=== PATIENT | female | born 1955 | race Caucasian/White ===

== ENCOUNTER → 2019-11-30 10:33 | Outpatient (CLI) | payer OTHER, SELFPAY ==
--- NOTE | ~2019-11-30 | XR_ITS ---
EXAMINATION: XR chest 2V EXAM DATE: 11/30/2019 11:10 INDICATION: Left-sided chest pain and right chest pain. Cough 1-2 weeks. Congestion. TECHNIQUE: Frontal and lateral projections of the chest obtained and reviewed. Comparison is made to prior examination from 08/26/2010. FINDINGS: Biapical scarring. There is severe chronic hyperinflation. No confluent consolidation, pne umothorax or pleural effusion suspected. Cardiomediastinal silhouette is normal. Cervical fusion hard claros. IMPRESSION: 1. Hyperinflation. 2. Biapical scarring. Reviewed, dictated and finalized at location B. T OPERATIONS CLERK
== END ==
PROVIDERS: PCP Internal Medicine; Visit Provider Internal Medicine
DX: R07.9 Chest pain, unspecified (principal); R91.8 Other nonspecific abnormal finding of lung field
CPT/HCPCS: 71046

== ENCOUNTER 2020-06-16 16:20 | Emergency (ER) | payer OTHER, SELFPAY ==
--- NOTE | ~2020-06-16 | XR_ITS ---
EXAMINATION: XR chest 2V EXAM DATE: 06/16/2020 17:37 INDICATION: Right-sided lateral chest pain. TECHNIQUE: Frontal and lateral projections of the chest obtained and reviewed. Comparison is made to prior examination from 11/30/2019. FINDINGS: There is severe chronic hyperinflation. There are bilateral upper lobe peripheral opacitie s unchanged, likely focal regions of scarring. The lungs are otherwise clear. There are no pleural e ffusions. The cardiomediastinal silhouette is within normal limits. There is no pneumothorax suspec valdez. Bones appear somewhat osteopenic. IMPRESSION: 1. Biapical scarring. 2. Hyperinflation. Reviewed, dictated and finalized at location A.
--- NOTE | 2020-06-16 16:33 | ECG_ITS ---
Measurements Intervals [place] Rate: 78 P: 83 W[place]: 146 QRS: 87 QRSD: 80 T: 73 QT: 379 QTc: 434 Interpretive Statements SINUS RHYTHM RIGHT ATRIAL ENLARGEMENT LEFT ATRIAL ENLARGEMENT BORDERLINE ST ABNORMALITY- INFERIOR LEADS BASELINE ARTIFACT- I, II, III, AVR, AVL, AVF, V1-V2, V6 BORDERLINE ECG Electronically Signed On 06-16-2020 17:09:09 CDT by Matt Bradley D.O.
[2020-06-16 16:44] VITALS: BP 150/86; PULSE 78; PULSE 80; RESP 16; TEMP 37.2; O2SAT 98
--- NOTE | 2020-06-16 17:07 | ED.ARRPALP ---
HPI - Arrhythmia/Palpitations General Chief Complaint: Arrhythmia/Palpitations Stated Complaint: right side pain, lightheaded ness Source: patient Limitations: no limitations History of Present Illness HPI narrative: Palpitations a couple of weeks ago when outside in the heat. These recurred several days ago; they start in the afternoon. She may have 2 -3 episodes lasting several hours daily. Her heart doesn't race, but can have several beats in a row. The palpitation may be briefly associated with lightheadedness. She She has an appointment with Dr. Julian Jackson box cutter in 4 days in [place]. She started having palpitations more than 30 years ago which was attributed to mitral valve prolapse. She hasn't these for at least 4 years, the last time she saw Dr. Jackson. These episodes are not associated with nausea, vomiting, sweating, SOB, or chest/shoulder/arm/back pain. She has no hx of CAD or pulmonary disease, DM, smoking. Over the past few days she has developed a pulling, tightness sensation in her left lateral chest (points to the right mid-axillary line from costal margin to around the 4th rib) which radiates to the right side of her neck but does not involve the shoulder. It occurs after sitting for several hours, usually around 4 PM. Getting up and moving decreases the discomfort. It persists until she takes a warm bath around 9 PM which nearly or fullly clears it up. She awakes in the AM with no symptoms. She has not done any exertional work. She is allergic to aspirin. There is no family hx of CAD. Pt states she worries a lot and is concerned about having a heart attack. Her has had an MO. Related Data Home Medications Medication Instructions Recorded Confirmed ascorbic acid (vitamin C) [Vitamin 200 mg PO DAILY 06/16/20 06/16/20 C] [id number]-[id number]-[id number]-vit K 1 tablet PO DAILY 06/16/20 06/16/20 [Adults Multivitamin] Allergies Allergy/AdvReac Type Severity Reaction Status Date / Time aspirin Allergy Mild HIVES Verified 08/08/10 13:26 metronidazole Allergy Mild HEART Verified 08/08/10 13:26 ARRYTHMIA Penicillins Allergy Mild HIVES Verified 08/08/10 13:26 Acyclovir Analogues Allergy Hives Verified 06/16/20 18:22 Review of Systems Constitutional: Constitutional: Denies chills and Denies fever(s) Cardiovascular: Cardiovascular: Reports no additional cardiovascular complaints Respiratory: Respiratory: Denies cough, Denies dyspnea and Denies wheezing Gastrointestinal: Gastrointestinal: Denies abdominal pain, Denies nausea and Denies vomiting Integumentary/Breasts: Skin/Breast: Denies rash Hematologic/Lymphatic: Hematologic/Lymphatic: Denies easy bleeding Comments: Has had pedal edema for many years. She wears compressive stockings. Swelling is gone in the AM. Allergic/Immunologic: Allergic/Immunologic: Denies wheezing PMFSH Past Medical History Medical History (Updated 06/16/20 @ 18:33 by Blayne Garcia MD) Cervical vertebral fusion Degenerative disc disease Spinal cord tumor Family History Family History (Updated 06/16/20 @ 18:35 by Blayne Garcia MD) Mother Congestive heart failure (CHF) Social History Social History (Updated 06/16/20 @ 18:42 by Blayne Garcia MD) Social History: Worked at a [employer] until closed in January,. Smoking status: Never smoker Exam Narrative: Exam Narrative: NAD Const: General: no acute distress and alert Nutritional Appearance: thin Orientation/consciousness: patient oriented x3 HENMT: Mouth: Yes moist mucous membranes Neck: Neck: no lymphadenopathy Other: Nontender. No nodes. Full painless ROM. No trapezius tenderness. Chest: Chest palpation & inspection: normal inspection of the chest and no tenderness Other: No tenderness, swelling, discoloration right lateral chest, mid-axillary line region. No axillary nodes Resp: Effort & Inspection: normal respiratory effort Auscultation: clear to auscultation bilater
[2020-06-16 17:20] LABS: Hematocrit 38.6 % (35.0-42.0); Hemoglobin 12.5 g/dL (11.7-13.8); Mean Corpuscular HGB Conc 32.4 g/dL (32.0-36.0); Mean Corpuscular Hemoglobin 30.4 pg (27.0-31.0); Mean Corpuscular Volume 93.9 fL (78.0-102.0); Mean Platelet Volume 10.5 fl (9.2-11.8); Platelet Count Result 145 K/mm3 (150-420); Red Blood Count 4.11 M/mm3 (4.20-5.40); Red Cell Distribution Width 12.7 % (11.6-14.4); White Blood Count 4.6 K/mm3 (4.8-10.8)
[2020-06-16 17:44] VITALS: BP 128/73; PULSE 64; RESP 16; O2SAT 98
[2020-06-16 17:47] LABS: Anion Gap 6 mmol/L (8-16); Blood Urea Nitrogen 13 mg/dL (7-18); Carbon Dioxide 30 mmol/L (21-32); Chloride 103 mmol/L (98-108); Potassium 4.5 mmol/L (3.5-5.1); Sodium 139 mmol/L (136-145); Thyroid Stimulating Hormone 2.47 uIU/mL (0.36-3.74)
[2020-06-16 17:48] LABS: Alanine Aminotransferase 43 U/L (14-59); Albumin Level 3.6 g/dL (3.4-5.0); Alkaline Phosphatase 57 U/L (46-116); Aspartate Amino Transferase 44 U/L (15-37); Bilirubin,Total 0.4 mg/dL (0.00-1.00); Calcium 8.5 mg/dL (8.5-10.1); Estimated CRCL calculation 70 ml/min; Estimated Glomerular Filt Rate > 60; Glucose 96 mg/dL (70-99); Osmolality Calculated 288 mOsm/kg (285-295); Total Protein 7.3 g/dL (6.4-8.2); Troponin I < 0.02 ng/mL (0.00-0.056)
[2020-06-16 18:14] VITALS: BP 126/75; PULSE 81; RESP 16; O2SAT 100
== END 2020-06-16 18:25 | disposition home or self-care (01) ==
PROVIDERS: Emergency Provider Family Medicine; PCP Internal Medicine
DX: R00.2 Palpitations (principal); R07.89 Other chest pain; M54.2 Cervicalgia
CPT/HCPCS: 36415; 71046; 80053; 84443; 84484; 85027; 93005; 99284

== ENCOUNTER 2020-08-29 12:16 | Outpatient (CLI) | payer OTHER, SELFPAY ==
[2020-08-30 13:52] LABS: SARS-CoV-2 RNA PCR Negative
== END 2020-08-29 12:17 | disposition home or self-care (01) ==
LOC: CHSLAB 12:18
PROVIDERS: PCP Internal Medicine; Visit Provider Internal Medicine
DX: Z20.828 Contact with and (suspected) exposure to other viral communicable diseases (principal)
CPT/HCPCS: 87635; C9803; U0003

== ENCOUNTER 2020-11-16 09:13 | Outpatient (CLI) | payer OTHER, SELFPAY ==
[2020-11-16 10:16] LABS: SARS-CoV-2 Ag Negative (Negative)
[2020-11-17 18:46] LABS: SARS-CoV-2 RNA PCR Negative
== END 2020-11-16 09:14 | disposition home or self-care (01) ==
LOC: CHSLAB 09:15
PROVIDERS: PCP Internal Medicine; Visit Provider Internal Medicine
DX: Z20.822 Contact with and (suspected) exposure to COVID-19 (principal)
CPT/HCPCS: 87426; C9803; U0003; U0005

== ENCOUNTER 2021-10-29 11:42 | Outpatient (CLI) | payer OTHER, SELFPAY ==
[2021-10-29 13:08] LABS: SARS-CoV-2 RNA PCR Negative (Negative)
== END 2021-10-29 11:43 | disposition home or self-care (01) ==
LOC: CHSLAB 11:44
PROVIDERS: PCP Internal Medicine; Visit Provider Internal Medicine
DX: Z20.822 Contact with and (suspected) exposure to COVID-19 (principal)
CPT/HCPCS: C9803; U0003; U0005

== ENCOUNTER 2021-12-12 07:24 | Outpatient (CLI) | payer OTHER, SELFPAY ==
--- NOTE | ~2021-12-12 | US_ITS ---
EXAMINATION: US soft tissue UE RT DATE: 12/12/2021 07:56 INDICATION: Right elbow swelling TECHNIQUE: Multiple grayscale and Doppler ultrasound images of the region of concern at the superior right antecubital fossa were obtained. COMPARISON: None FINDINGS: There is a 3.1 x 2.1 x 0.3 cm anechoic fluid collection along the deep margin of with the distal myot endinous junction of the biceps brachii likely representing hematoma related to at least low-grade mu scle strain/partial tear. No discrete right defect with evidence discontinuity of the muscle or tendo n fibers to suggest a higher grade tear. IMPRESSION: 1. Likely low-grade strain along the myotendinous junction of the distal right biceps brachii. If cli nically indicated could consider further evaluation with MRI for more definitive assessment of the ex tent and severity of the tear. Reviewed, dictated and finalized at location A. RAFT PILOT IMPRESSION: 1. Likely low-grade strain along the myotendinous junction of the distal right biceps brachii. If clinically indicated could consider further evaluation with MRI for more definitive assessment of the extent and severity of the tear.
== END 2021-12-12 07:25 | disposition home or self-care (01) ==
LOC: CHSIMG 07:27
PROVIDERS: PCP Internal Medicine; Visit Provider Internal Medicine
DX: M25.421 Effusion, right elbow (principal)
CPT/HCPCS: 76882

== ENCOUNTER 2021-12-14 11:54 | Outpatient (CLI) | payer OTHER, SELFPAY ==
[2021-12-14 13:01] LABS: SARS-CoV-2 Ag Negative (Negative)
[2021-12-14 13:41] LABS: SARS-CoV-2 RNA PCR Negative (Negative)
== END 2021-12-14 11:55 | disposition home or self-care (01) ==
LOC: CHSLAB 11:57
PROVIDERS: PCP Internal Medicine; Visit Provider Nurse Practitioner Family
DX: J02.9 Acute pharyngitis, unspecified (principal); Z20.822 Contact with and (suspected) exposure to COVID-19
CPT/HCPCS: 87426; C9803; U0003; U0005

== ENCOUNTER 2022-03-29 16:30 | Emergency (ER) | payer OTHER, SELFPAY ==
[2022-03-29 16:45] VITALS: BP 138/84; PULSE 84; RESP 16; TEMP 36.3; O2SAT 100
[2022-03-29 18:15] LABS: Basophils Absolute Auto 0.04 K/mm3 (0.00-0.10); Basophils Percent Auto 1.1 % (0.0-1.0); Eosinophils Absolute Auto 0.03 K/mm3 (0.02-0.50); Eosinophils Percent Auto 0.8 % (1.0-6.0); Hemoglobin 12.9 g/dL (11.7-13.8); Immature Granulocyte Absolute 0.01 K/mm3 (0.00-0.00); Immature Granulocyte Percent A 0.3 % (0.0-0.0); Lymphocytes Absolute Auto 0.96 K/mm3 (1.10-4.50); Lymphocytes Percent Auto 25.7 % (18.0-42.0); Mean Corpuscular HGB Conc 32.3 g/dL (32.0-36.0); Mean Corpuscular Hemoglobin 30.3 pg (27.0-31.0); Mean Corpuscular Volume 93.9 fL (78.0-102.0); Mean Platelet Volume 10.6 fl (9.2-11.8); Monocytes Absolute Auto 0.53 K/mm3 (0.10-0.90); Monocytes Percent Auto 14.2 % (2.0-11.0); Neutrophils Absolute Auto 2.2 K/mm3 (1.7-7.2); Neutrophils Percent Auto 57.9 % (50.0-70.0); Platelet Count Result 160 K/mm3 (150-420); Red Blood Count 4.26 M/mm3 (4.20-5.40); Red Cell Distribution Width 12.8 % (11.6-14.4); White Blood Count 3.7 K/mm3 (4.8-10.8)
[2022-03-29 18:28] LABS: Prothrombin Time 10.6 Seconds (9.50-12.10)
--- NOTE | 2022-03-29 18:39 | ED.SKABFB ---
HPI - Skin/Abscess/Foreign Bdy General Chief complaint: Skin/Abscess/Foreign Body Stated complaint: pain in rt wrist and swelling Time Seen by Provider: 03/29/22 16:34 Source: patient and RN notes reviewed Mode of arrival: ambulatory Limitations: no limitations History of Present Illness complaint: other (dorsal left hand 1.5 cm diam discolored soft swelling) Onset (ago): hour(s) (2) Tetanus up to date: unsure Location: L hand Severity: mild Severity scale (1-10): 1 Pain Consistency: constant Relieving factors: none Exacerbating factors: none Context: none Associated symptoms: denies other symptoms Treatments prior to arrival: none Related Data Home Medications Medication Instructions Recorded Confirmed ascorbic acid (vitamin C) 100 mg 200 mg PO DAILY 06/16/20 03/29/22 tablet (Vitamin C) multivit with minerals-iron 18 1 tablet PO DAILY 06/16/20 03/29/22 mg-folic ac 400 mcg-vit K 25 mcg tablet (Adults Multivitamin) metoprolol succinate 25 mg 25 tablet PO DAILY 03/29/22 03/29/22 tablet,extended release 24 hr Allergies Allergy/AdvReac Type Severity Reaction Status Date / Time aspirin Allergy Mild HIVES Verified 03/29/22 16:54 metronidazole Allergy Mild HEART Verified 03/29/22 16:54 ARRYTHMIA Penicillins Allergy Mild HIVES Verified 03/29/22 16:54 Acyclovir Analogues Allergy Hives Verified 03/29/22 16:54 Review of Systems Review of Systems: All systems reviewed & are unremarkable except as noted in HPI and below PMFSH Past Medical History Medical History Cervical vertebral fusion Degenerative disc disease Phlebitis Spinal cord tumor Family History Family History Mother Congestive heart failure (CHF) Social History Social History Social History: Worked at a [employer] until closed in January,. Smoking status: Never smoker Exam Const: General: no acute distress Nutritional Appearance: well nourished Orientation/consciousness: patient oriented x3 Limitations: no limitations HENMT: Head: normal to inspection Ears: external ears normal, TM's normal bilaterally and EAC's normal General nose exam: Normal external nose present and Normal nares present Face and sinus: normal facial exam Mouth: Yes Normal oral and palatal mucosa present, Yes lip normal and Yes moist mucous membranes Throat: posterior oropharynx normal Eyes: Conjunctivae: conjunctivae normal Pupils: Equal, round and reactive pupils present EOM: EOMs intact bilaterally Neck: Neck: normal visual inspection and no lymphadenopathy Chest: Chest palpation & inspection: normal inspection of the chest Resp: Effort & Inspection: normal respiratory effort Auscultation: clear to auscultation bilaterally Cardio: Rhythm: regular rhythm GI: GI Palp: Yes Soft to palpation and No Tenderness to palpation present (GI) Auscultation: normal bowel sounds : General: Yes bladder normal to palpation and Yes no CVA tenderness Back/Spine/Pelvis: Back: no CVA tenderness Skin: General skin exam: normal color Neuro: General: patient oriented x3, moves all extremities, no meningeal signs, no focal motor deficits and CN's II-XI intact bilaterally Gait exam (Neuro): Normal gait present Other: 1.5 cm diameter Extrem: General: no pedal edema Psych: Mental Status: mental status grossly normal Affect: normal affect Attitude: cooperative Course Course Emergency Course: Pt was stable in the ED. Reevaluation(s) Reevaluation #1: VSS. Date: 03/29/22 Time: 17:25 Vital Signs Vital signs: Vital Signs Temperature 36.3 C L 03/29/22 16:45 Pulse Rate 84 03/29/22 16:45 Respiratory Rate 16 03/29/22 16:45 Blood Pressure 138/84 03/29/22 16:45 Pulse Oximetry 100 03/29/22 16:45 Oxygen Delivery Room Air 03/29/22 16:45 Temperature 36.3 C L 03/29
== END 2022-03-29 19:16 | disposition home or self-care (01) ==
PROVIDERS: Emergency Provider Emergency Medicine; PCP Internal Medicine
DX: I80.9 Phlebitis and thrombophlebitis of unspecified site (principal)
CPT/HCPCS: 36415; 85025; 85610; 85730; 99283

== ENCOUNTER 2022-07-27 08:55 | Outpatient (CLI) | payer OTHER, SELFPAY ==
--- NOTE | ~2022-07-27 | XR_ITS ---
XR lumbar spine 2-3V 07/27/2022 09:29 Indication: Lifting injury. Low back pain. Procedure: 3 views lumbar spine Comparison: No prior studies for comparison. Findings: Vertebral body heights are maintained. No fracture, subluxation or dislocation. There is mi ld disc narrowing at L3-4. There is mild facet hypertrophy at L4-5 and L5-S1. No spondylolisthesis. Impression: 1: No acute abnormality of the lumbar spine. 2: Mild lumbar spondylosis. Reviewed, dictated and finalized at location A. Impression: 1: No acute abnormality of the lumbar spine. 2: Mild lumbar spondylosis.
== END 2022-07-27 08:56 | disposition home or self-care (01) ==
LOC: CHSIMG 08:57
PROVIDERS: PCP Internal Medicine; Visit Provider Internal Medicine
DX: M54.9 Dorsalgia, unspecified (principal)
CPT/HCPCS: 72100

== ENCOUNTER 2022-08-01 07:34 | Outpatient (CLI) | payer OTHER, SELFPAY ==
--- NOTE | ~2022-08-01 | US_ITS ---
US right upper quadrant INDICATION: Elevated liver function tests. Patient diagnosed with hemangioma in 2003. PROCEDURE: Realtime right upper abdominal ultrasound. COMPARISON: No prior studies for comparison. FINDINGS: The pancreas is normal without focal mass or pancreatic ductal dilation. Liver is enlarged measuring 18.3 cm. No focal hepatic masses. Normal heterogeneous echotexture in the liver. There is normal directional flow in the portal vein. There are gallstones. No gallbladder wall thickening or pericholecystic fluid. Common bile duct crystal ures 2.5 mm. No sonographic Xiao's sign. IMPRESSION: 1: Cholelithiasis. 2: Hepatomegaly. Reviewed, dictated and finalized at location B.
== END 2022-08-01 07:35 | disposition home or self-care (01) ==
LOC: CHSIMG 07:35
PROVIDERS: PCP Internal Medicine; Visit Provider Internal Medicine
DX: R94.5 Abnormal results of liver function studies (principal)
CPT/HCPCS: 76705

== ENCOUNTER 2024-07-08 10:48 | Outpatient (CLI) | payer MEDICARE, OTHER, SELFPAY ==
[2024-07-08 11:38] LABS: SARS-CoV-2 RNA PCR Negative (Negative)
[2024-07-08 11:42] LABS: Strep Group A RT-PCR NOT DETECTED (Negative)
== END 2024-07-08 10:49 | disposition home or self-care (01) ==
PROVIDERS: PCP Internal Medicine; Visit Provider Internal Medicine
DX: J02.9 Acute pharyngitis, unspecified (principal); J06.9 Acute upper respiratory infection, unspecified; Z20.822 Contact with and (suspected) exposure to COVID-19
CPT/HCPCS: 87635; 87651

== ENCOUNTER 2024-11-02 10:19 | Outpatient (CLI) | payer MEDICARE, SELFPAY ==
[2024-11-02 11:24] LABS: SARS-CoV-2 RNA PCR Negative (Negative)
[2024-11-02 11:25] LABS: Influenza A QL RT-PCR Negative (Negative); Influenza B QL RT-PCR Negative (Negative); RSV RNA, RT-PCR Positive (Negative)
== END 2024-11-02 10:20 | disposition home or self-care (01) ==
PROVIDERS: PCP Internal Medicine; Visit Provider Internal Medicine
DX: J06.9 Acute upper respiratory infection, unspecified (principal)
CPT/HCPCS: 87637

== ENCOUNTER 2024-11-14 00:09 | Emergency (ER) | payer MEDICARE, SELFPAY ==
--- NOTE | ~2024-11-14 | XR_ITS ---
XR chest 2V DATE: 11/14/2024 00:39 INDICATION: Chest congestion, pleuritic chest pain TECHNIQUE: Frontal and lateral projections, 3 total radiographs COMPARISON: None FINDINGS: Bilateral hyperinflation, suggesting COPD. No pulmonary infiltrate or consolidation, pleural effusion or pulmonary vascular congestion or pneumo thorax is detected. Heart size is within normal limits. No hilar or mediastinal enlargement is detected. Status post anterior cervical spine surgical fusion. Osteopenia. Mild upper thoracic levoscoliosis. IMPRESSION: Bilateral hyperinflation suggesting COPD; no active cardiopulmonary disease is detected Osteopenia Reviewed, dictated and finalized at location A. 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
[2024-11-14 00:10] VITALS: PULSE 86; O2SAT 99
[2024-11-14 00:16] VITALS: BP 160/88; PULSE 87; RESP 27; TEMP 37
--- NOTE | 2024-11-14 00:24 | ED_ITS ---
HPI - SOB/Dyspnea General Chief Complaint: Shortness of Breath/Dyspnea Stated Complaint: R side upper pain Time Seen by Provider: 11/14/24 00:17 Source: patient and family Mode of arrival: ambulatory Limitations: no limitations History of Present Illness HPI Narrative: this is a 69-year-old female with a recent diagnosis of RSV and her primary started on antibiotics for bronchitis presents with some pain on the left rib area with deep inspiration with a mild nonproductive cough no fever chills no chest pain currently no shortness of breath no audible wheezing no nausea vomiting or abdominal pain no diarrhea constipation. MD elicited complaint: pain with inspiration Onset (ago): day(s) Context: recent illness Timing: constant Severity: moderate Exacerbating factors: inspiration Related Data Home Medications ?Medication ?Instructions ?Recorded ?Confirmed ?Last Taken ?Type ascorbic acid (vitamin C) 100 mg 200 mg PO DAILY 06/16/20 03/29/22 06/16/20 History tablet (Vitamin C) multivit with minerals-iron 18 1 tablet PO DAILY 06/16/20 03/29/22 06/16/20 History mg-folic ac 400 mcg-vit K 25 mcg tablet (Adults Multivitamin) metoprolol succinate 25 mg 25 tablet PO DAILY 03/29/22 03/29/22 Unknown History tablet,extended release 24 hr Allergies Allergy/AdvReac Type Severity Reaction Status Date / Time aspirin Allergy Mild HIVES Verified 03/29/22 16:54 metronidazole Allergy Mild HEART Verified 03/29/22 16:54 ARRYTHMIA Penicillins Allergy Mild HIVES Verified 03/29/22 16:54 Acyclovir Analogues Allergy Hives Verified 03/29/22 16:54 Review of Systems Review of Systems: All systems reviewed & are unremarkable except as noted in HPI and below PMFSH Past Medical History Medical History Phlebitis Spinal cord tumor Degenerative disc disease Cervical vertebral fusion Family History Family History Mother Congestive heart failure (CHF) Social History Social History Social History: Worked at a [employer] until closed in January,. Smoking status: Never smoker Exam Const: General: no acute distress Nutritional Appearance: thin Orientation/consciousness: patient oriented x3 Limitations: no limitations Eyes: Conjunctivae: conjunctivae normal Resp: Effort & Inspection: normal respiratory effort Auscultation: clear to auscultation bilaterally Cardio: Rate: regular rate Rhythm: regular rhythm GI: GI Palp: Yes Soft to palpation Auscultation: normal bowel sounds : General: Yes bladder normal to palpation Skin: General skin exam: normal color Rashes: no rashes Neuro: General: patient oriented x3 Extrem: General: normal to inspection Course Course Emergency Course: Patient with a pleuritic chest discomfort given a g of Tylenol and chest x-ray performed and reviewed. The Vital Signs Vital signs: Vital Signs Pulse Rate 86 11/14/24 00:10 Pulse Oximetry 99 11/14/24 00:10 Oxygen Delivery Room Air 11/14/24 00:10 Temperature 37.0 C 11/14/24 00:16 Pulse Rate 87 11/14/24 00:16 Respiratory Rate 27 H 11/14/24 00:16 Blood Pressure 160/88 H 11/14/24 00:16 Pulse Oximetry 99 11/14/24 00:10 Oxygen Delivery Room Air 11/14/24 00:16 Critical Care Time Critical Care Time Critical Care Time: No Discharge Plan Discharge Clinical Impression: Pleurisy Patient Disposition: Home, Self-Care Condition: Stable Instructions: Antibiotic Form, Pleurisy (ED) Additional Instructions: advised to take medication as prescribed and follow up with primary within 1 week for further evaluation and treatment. Patient Language: Citizen Of [place] Prescriptions: No Action Vitamin C 100 mg Tablet 200 mg PO DAILY Adults Multivitamin 18 mg iron-400 mcg-25 mcg Tablet 1 tablet PO DAILY metoprolol succinate 25 mg tablet extended release 24 hr 25 tablet PO DAILY Follow-up/Referrals: Jorge Luis Rosales MD [Primary Care Provider] -
[2024-11-14] MEDS: ACETAMINOPHEN 500 MG TABLET 1000 MG PO (00:27)
[2024-11-14 00:58] VITALS: BP 140/75; PULSE 74; RESP 18; TEMP 36.6; O2SAT 99
== END 2024-11-14 00:58 | disposition home or self-care (01) ==
LOC: CHSED 00:52
PROVIDERS: Emergency Provider Emergency Medicine; PCP Internal Medicine
DX: R09.1 Pleurisy (principal)
CPT/HCPCS: 71046; 99283